=== PATIENT | female | born 1935 | race Two or more races ===

== ENCOUNTER 2024-08-04 11:42 | Inpatient (IN) | payer OTHER ==
[2024-08-04 12:09] VITALS: BMI 18.8
[2024-08-04] MEDS: ACETAMINOPHEN 1000 MG/100 ML BAG IVPB ONE (13:01)
[2024-08-04] MEDS: SODIUM CHLORIDE 0.9% 500 ML INFUS.BAG IV ONE (13:01)
[2024-08-04 13:15] LABS: ABSOLUTE IMMATURE GRANULOCYTES 0.02 x10^3/uL (0.0-0.031); BASOPHILS # 0.01 x10^3/uL (0.01-0.08); HEMATOCRIT 36.3 % (34.1-44.9); HEMOGLOBIN 11.7 g/dL (11.2-15.7); MCHC 32.2 g/dl (32.2-35.5); MEAN CELL VOLUME 100.3 fl (79.4-94.8); MEAN PLT VOLUME 9.7 fl (9.4-12.3); MONOCYTE # 0.75 x10^3/uL (0.24-0.86); MONOCYTE % 10.4 % (4.7-12.5); PLATELET COUNT # 125 x10^3/uL (182-369)
[2024-08-04 13:17] LABS: EPI CELLS 5 /uL (0-25.1); HYALINE CASTS 4 /uL (0-3.1); URINE APPEARANCE CLOUDY; URINE BACTERIA >9,000 /uL (0-1359); URINE BILIRUBIN NEGATIVE (NEGATIVE); URINE COLOR YELLOW; URINE GLUCOSE (UA) NEGATIVE (NEGATIVE); URINE KETONE NEGATIVE (NEGATIVE); URINE LEUK ESTERASE 2+ (NEGATIVE); URINE NITRITE NEGATIVE (NEGATIVE); URINE PROTEIN 1+ (NEGATIVE); URINE UROBILINOGEN 0.2 mg/dL (0.2-1.0); URINE WBC 640 /uL (0-25.8)
[2024-08-04 13:18] LABS: INR 1.23 (0.83-1.09); PROTHROMBIN TIME (PATIENT) 13.4 SEC (9.7-13.0); URINE RBC 24.2 /uL (0-23.9)
[2024-08-04 13:21] LABS: ACTIVATED PTT 30.7 SECONDS (25.2-36.5)
[2024-08-04 13:31] LABS: POTASSIUM 3.7 mmol/L (3.5-5.1)
[2024-08-04 13:33] LABS: ALBUMIN 2.7 g/dl (3.4-5.0); BLOOD UREA NITROGEN 28.2 mg/dL (7-18)
[2024-08-04 13:36] LABS: CREATININE 0.8 mg/dL (0.55-1.3)
[2024-08-04 13:38] LABS: BILIRUBIN,TOTAL 0.2 mg/dL (0.2-1); TOT PROT 6.3 g/dl (6.4-8.2)
[2024-08-04] MEDS ORDERED: levETIRAcetam 500 MG/5 ML INJECTION VIAL IVPB ONE (14:19)
[2024-08-04] MEDS ORDERED: CEFTRIAXONE 1 G/50 ML PREMIX 50 ML IVPB ONE (14:19)
[2024-08-04] MEDS: CEFTRIAXONE 1 GM in DEXTROSE 5%-WATER - 50 ML IVPB ONE (14:31)
[2024-08-04] MEDS: levETIRAcetam 500 MG/5 ML INJECTION VIAL IVPB ONE (14:31)
[2024-08-04] MEDS: SODIUM CHLORIDE 0.9% 1000 ML INFUS.BAG IV ONE (17:11)
[2024-08-04] MEDS ORDERED: oxyCODONE HCL 5 MG TABLET PO PRN (17:29)
[2024-08-04] MEDS ORDERED: ONDANSETRON 4 MG/2 ML VIAL IVPUSH PRN (17:30)
[2024-08-05] MEDS ORDERED: ACETAMINOPHEN 1000 MG/100 ML BAG IVPB PRN (00:05)
[2024-08-05] MEDS ORDERED: oxyCODONE HCL 5 MG TABLET PO PRN (03:52)
[2024-08-05] MEDS ORDERED: ONDANSETRON 4 MG/2 ML VIAL IVPUSH PRN (03:52)
[2024-08-05] MEDS: SODIUM CHLORIDE 1,000 ML IV SCH (05:24)
[2024-08-05 08:58] LABS: POTASSIUM 3.1 mmol/L (3.5-5.1)
[2024-08-05 09:00] LABS: ALBUMIN 2.5 g/dl (3.4-5.0); BLOOD UREA NITROGEN 17.5 mg/dL (7-18); MAGNESIUM 2.2 mg/dL (1.8-2.4)
[2024-08-05 09:42] LABS: CREATININE 0.4 mg/dL (0.55-1.3); PHOSPHOROUS 2.8 mg/dL (2.5-4.9)
[2024-08-05 09:45] LABS: BILIRUBIN,TOTAL 0.3 mg/dL (0.2-1)
[2024-08-05 09:51] LABS: TOT PROT 5.8 g/dl (6.4-8.2)
[2024-08-05] MEDS ORDERED: ENOXAPARIN NA (PORCINE) 40 MG/0.4 ML DISP.SYRIN SQ SCH (10:00)
[2024-08-05] MEDS: levETIRAcetam 500 MG/5 ML INJECTION VIAL IVPB SCH (10:13)
[2024-08-05] MEDS: CEFTRIAXONE 1 G/50 ML PREMIX 50 ML IVPB ONE (10:53)
[2024-08-05 11:06] LABS: HEMATOCRIT 37.5 % (34.1-44.9); HEMOGLOBIN 12.3 g/dL (11.2-15.7); MCHC 32.8 g/dl (32.2-35.5); MEAN CELL VOLUME 97.9 fl (79.4-94.8); MEAN PLT VOLUME 9.9 fl (9.4-12.3); PLATELET COUNT # 112 x10^3/uL (182-369); RDW 12.7 % (12.5-17.0)
[2024-08-05 12:09] VITALS: RESP 18
[2024-08-05] MEDS: POTASSIUM CHLORIDE ORAL LIQUID 20 MEQ/15 ML PO ONE (13:09)
[2024-08-05] MEDS: ACETAMINOPHEN 1000 MG/100 ML BAG IVPB PRN (17:38)
[2024-08-05] MEDS: OSELTAMIVIR PHOSPHATE 6 MG/1 ML PO SCH (19:36)
[2024-08-05] MEDS ORDERED: OSELTAMIVIR PHOSPHATE 6 MG/1 ML PO SCH (22:00)
[2024-08-06] MEDS: POTASSIUM CHLORIDE ORAL LIQUID 20 MEQ/15 ML PO ONE (08:38)
[2024-08-06] MEDS ORDERED: OSELTAMIVIR PHOSPHATE 75 MG CAPSULE PO SCH (10:06)
[2024-08-06 10:14] LABS: HEMATOCRIT 36.5 % (34.1-44.9); HEMOGLOBIN 12.3 g/dL (11.2-15.7); MCHC 33.7 g/dl (32.2-35.5); MEAN CELL VOLUME 95.5 fl (79.4-94.8); MEAN PLT VOLUME 9.7 fl (9.4-12.3); PLATELET COUNT # 120 x10^3/uL (182-369); RDW 12.8 % (12.5-17.0)
[2024-08-06 10:36] LABS: POTASSIUM 3.5 mmol/L (3.5-5.1)
[2024-08-06 10:45] LABS: BLOOD UREA NITROGEN 15.8 mg/dL (7-18)
[2024-08-06 10:47] LABS: ALBUMIN 2.4 g/dl (3.4-5.0)
[2024-08-06 10:49] LABS: CREATININE 0.4 mg/dL (0.55-1.3)
[2024-08-06 10:51] LABS: BILIRUBIN,TOTAL 0.2 mg/dL (0.2-1)
[2024-08-06] MEDS: OSELTAMIVIR PHOSPHATE 6 MG/1 ML PO SCH (16:37)
[2024-08-06] MEDS: OSELTAMIVIR PHOSPHATE 75 MG CAPSULE PO ONE (16:58)
[2024-08-06] MEDS: OSELTAMIVIR PHOSPHATE 75 MG CAPSULE PO SCH (21:24)
[2024-08-07 14:40] VITALS: BP 120/59; PULSE 88; TEMP 98
== END 2024-08-07 14:30 | disposition home or self-care (01) | DRG 193 ==
LOC: JER 11:42 → JERBED 15:23 → J6S 08-05 01:44
PROVIDERS: ADMIT Internal Medicine Pulmonary Disease; ATTEND Internal Medicine
DX: J10.1 Influenza due to other identified influenza virus with other respiratory manifestations (principal); I61.9 Nontraumatic intracerebral hemorrhage, unspecified; N39.0 Urinary tract infection, site not specified; J44.9 Chronic obstructive pulmonary disease, unspecified; F03.90 Unspecified dementia, unspecified severity, without behavioral disturbance, psychotic disturbance, mood disturbance, and anxiety; R56.9 Unspecified convulsions; B96.20 Unspecified Escherichia coli [E. coli] as the cause of diseases classified elsewhere; D64.9 Anemia, unspecified
CPT/HCPCS: 0241U-QW; 36415; 70450-TC; 70496-TC; 70498-TC; 71045-TC-FY; 80053; 81003; 82607; 82746; 83605; 83735; 84100; 84484; 85025; 85027; 85610; 85730; 86850; 86900; 86901; 87040; 87086; 87186; 93005; 93010; 99285-25; J0131

== ENCOUNTER 2024-08-11 09:35 | Emergency (ER) | payer OTHER ==
[2024-08-11 10:19] VITALS: BMI 18.8
[2024-08-11] MEDS ORDERED: ACETAMINOPHEN 500 MG TABLET (FP) ONE (10:56)
[2024-08-11] MEDS: ACETAMINOPHEN 500 MG TABLET (FP) PO ONE (11:03)
[2024-08-11 14:38] VITALS: RESP 16
[2024-08-11 18:18] VITALS: BP 121/76; PULSE 92; TEMP 98.4
== END 2024-08-11 18:19 | disposition home or self-care (01) ==
LOC: JER 09:35
DX: S09.90XA Unspecified injury of head, initial encounter (principal); R05.9 Cough, unspecified; W06.XXXA Fall from bed, initial encounter
CPT/HCPCS: 70450-TC; 71045-TC-FY; 93005; 93010; 99285-25